=== PATIENT | female | born 1970 | race Caucasian/White ===

== ENCOUNTER 2017-10-03 15:25 | Outpatient (CLI) | payer OTHER ==
--- NOTE | 2017-10-03 15:42 | RAD ---
LEFT SHOULDER 3 VIEWS: Date: 10/03/17 HISTORY: Left shoulder pain. FINDINGS: Acromioclavicular and glenohumeral alignment are maintained. Mild osteophytosis. No acute fracture, d islocation, or aggressive osseous erosions. IMPRESSION: Very mild osteoarthritic changes left shoulder. POS: [facility]
== END 2017-10-03 15:26 | disposition home or self-care (01) ==
LOC: RAD-FRANK 15:25
PROVIDERS: ATTEND Nurse Practitioner Family
DX: M25.512 Pain in left shoulder (principal); M19.012 Primary osteoarthritis, left shoulder